=== PATIENT | female | born 1970 | race Caucasian/White ===

== ENCOUNTER 2017-06-18 17:52 | Emergency (ER) | payer OTHER ==
[~2017-06-18] VITALS: Ht 170.2 cm; Wt 77.1 kg
[~2017-06-18 17:52] MED LIST: ACETAMINOPHEN-1 EAC1 PO; CLEOCIN HCL300 MG PO; DOXYCYCLINE 10100 MG PO; KEFLEX500 MG PO; NOHOMEMEDICATIONS; NORCO 5-325 TA1 EACH PO
[2017-06-18] MEDS ORDERED: ZOLOFT50 MG PO (18:10)
[2017-06-18 20:32] VITALS: BP 134/87
== END 2017-06-18 20:35 | disposition home or self-care (01) ==
LOC: M.ERS 17:52
DX: S06.0X0A Concussion without loss of consciousness, initial encounter (principal); F17.210 Nicotine dependence, cigarettes, uncomplicated; Z88.1 Allergy status to other antibiotic agents; Z90.49 Acquired absence of other specified parts of digestive tract; W22.8XXA Striking against or struck by other objects, initial encounter; Y93.89 Activity, other specified; Y92.89 Other specified places as the place of occurrence of the external cause; Y99.8 Other external cause status

== ENCOUNTER 2019-05-31 19:07 | Emergency (ER) | payer OTHER ==
[~2019-05-31] VITALS: Ht 170.2 cm; Wt 79.4 kg
[~2019-05-31 19:07] MED LIST changes: +ZOLOFT50 MG PO
[2019-05-31 19:44] LABS: ABSOLUTE BASOPHILS 0.1 thou/uL (0.0-0.2); ABSOLUTE EOSINOPHILS 0.2 thou/uL (0.0-0.7); ABSOLUTE LYMPHOCYTES 1.9 thou/uL (0.8-5.3); ABSOLUTE MONOCYTES 1.4 thou/uL (0.0-1.2); ABSOLUTE NEUTROPHILS 12.9 thou/uL (1.6-8.1); BASOPHILS 0.5 %; EOSINOPHILS 1.1 %; HEMATOCRIT 42.3 % (37.0-47.0); HEMOGLOBIN 14.5 gm/dL (12.0-15.0); LYMPHOCYTES 11.3 %; MCH 32.8 pg (26.0-34.0); MCHC 34.3 g/dL (28.0-37.0); MCV 95.6 fL (80.0-100.0); MONOCYTES 8.6 %; MPV 8.5 fl. (7.2-11.1); NUCLEATED RBCS 0 /100WBC; PLATELET COUNT* 436 thou/uL (150-400); POLYS 78.5 %; RBC 4.42 mil/uL (4.20-5.00); RDW-CV 13.6 % (10.5-14.5); WBC 16.4 thou/uL (4.0-11.0)
[2019-05-31 19:54] LABS: CALCIUM 8.4 mg/dL (8.5-10.1); POTASSIUM 3.4 mmol/L (3.5-5.1)
[2019-05-31 19:56] LABS: URINE BILIRUBIN NEGATIVE (Negative); URINE BLOOD 3+ (Negative); URINE COLOR YELLOW; URINE GLUCOSE-RANDOM NEGATIVE (Negative); URINE KETONES NEGATIVE (Negative); URINE PROTEIN 3+ (Negative); URINE UROBILINOGEN 0.2 E.U./dl (0.2-1.0)
[2019-05-31 20:00] LABS: URINE CLARITY HAZY; URINE LEUKOCYTES-REFLEX 2+ (Negative); URINE NITRITE-REFLEX POSITIVE (Negative)
[2019-05-31 20:01] LABS: ALBUMIN 3.4 g/dL (3.4-5.0); TOTAL BILIRUBIN 0.8 mg/dL (<0.1-1.0); TOTAL PROTEIN 7.7 g/dL (6.4-8.2)
[2019-05-31 20:06] LABS: CASTS None Seen /LPF (None Seen); CRYSTALS None Seen /LPF (None Seen); SQUAMOUS NONE SEEN /LPF (0-3); URINE RBC >20 Many /HPF (0-2); URINE WBC-REFLEX >25 Many /HPF (0-5)
[2019-05-31] MEDS ORDERED: KEFLEX500 M1 PO (21:57)
[2019-05-31] MEDS ORDERED: NORCO 5-325 TA1 EAC1 PO (21:57)
[2019-05-31 22:04] VITALS: BP 126/79
== END 2019-05-31 22:05 | disposition home or self-care (01) ==
LOC: M.ERS 19:07
PROVIDERS: Emergency Medicine Emergency Medical Services
DX: N12 Tubulo-interstitial nephritis, not specified as acute or chronic (principal); Z88.1 Allergy status to other antibiotic agents; Z88.2 Allergy status to sulfonamides; Z90.89 Acquired absence of other organs; Z90.49 Acquired absence of other specified parts of digestive tract; Z98.51 Tubal ligation status

== ENCOUNTER 2019-07-12 19:54 | Inpatient (IN) | payer OTHER ==
[~2019-07-12] VITALS: Ht 170.2 cm; Wt 81.6 kg
[~2019-07-12 19:54] MED LIST changes: +KEFLEX500 M1 PO; +NORCO 5-325 TA1 EAC1 PO
[2019-07-12 19:55] VITALS: BP 142/67
[2019-07-12 20:19] LABS: URINE BILIRUBIN NEGATIVE (Negative); URINE BLOOD 2+ (Negative); URINE COLOR YELLOW; URINE GLUCOSE-RANDOM NEGATIVE (Negative); URINE KETONES NEGATIVE (Negative); URINE PROTEIN TRACE (Negative); URINE UROBILINOGEN 0.2 E.U./dl (0.2-1.0)
[2019-07-12 20:22] LABS: URINE CLARITY CLOUDY; URINE LEUKOCYTES-REFLEX 2+ (Negative); URINE NITRITE-REFLEX POSITIVE (Negative)
[2019-07-12 20:32] LABS: SQUAMOUS 0-3 Few /LPF (0-3); URINE WBC-REFLEX >25 Many /HPF (0-5)
[2019-07-12 20:33] LABS: BACTERIA-REFLEX >30 Many /HPF (None Seen); CASTS None Seen /LPF (None Seen); CRYSTALS None Seen /LPF (None Seen); URINE RBC 3-10 Few /HPF (0-2)
[2019-07-12 20:37] LABS: ABSOLUTE BASOPHILS 0.1 thou/uL (0.0-0.2); ABSOLUTE EOSINOPHILS 0.1 thou/uL (0.0-0.7); ABSOLUTE LYMPHOCYTES 1.2 thou/uL (0.8-5.3); ABSOLUTE MONOCYTES 1.4 thou/uL (0.0-1.2); ABSOLUTE NEUTROPHILS 10.7 thou/uL (1.6-8.1); BASOPHILS 0.6 %; EOSINOPHILS 0.9 %; HEMATOCRIT 39.7 % (37.0-47.0); HEMOGLOBIN 13.7 gm/dL (12.0-15.0); LYMPHOCYTES 8.8 %; MCH 32.9 pg (26.0-34.0); MCHC 34.5 g/dL (28.0-37.0); MCV 95.2 fL (80.0-100.0); MONOCYTES 10.2 %; MPV 8.9 fl. (7.2-11.1); NUCLEATED RBCS 0 /100WBC; PLATELET COUNT* 374 thou/uL (150-400); POLYS 79.5 %; RBC 4.17 mil/uL (4.20-5.00); WBC 13.5 thou/uL (4.0-11.0)
[2019-07-12 20:52] LABS: ALBUMIN 3.1 g/dL (3.4-5.0); CALCIUM 8.3 mg/dL (8.5-10.1); POTASSIUM 3.8 mmol/L (3.5-5.1); TOTAL BILIRUBIN 0.3 mg/dL (<0.1-1.0)
[2019-07-12 22:55] VITALS: BP 120/70
[2019-07-12 23:00] VITALS: BP 118/79
[2019-07-13 04:00] VITALS: BP 122/77
[2019-07-13 08:00] VITALS: BP 123/84
[2019-07-13 16:25] VITALS: BP 110/72
--- NOTE | 2019-07-13 17:28 | NUR ---
PATIENT RESTING IN BED. PATIENT IS UP AD DIMA IN ROOM. PATIENT HAS HAD COMPLAINTS OF FLANK AND ABDOMINAL PAIN TREATED ADEQUATELY WITH MEDICATION AND HEAT APPLICATION. PATIENT HAS BEEN AFEBRILE. PATIENT HAS GOOD APPETITE. PATIENT DENIES ANY NEEDS AT THIS TIME. CALL LIGHT WITHIN REACH.
[2019-07-13 19:39] VITALS: BP 125/77
[2019-07-14 08:35] VITALS: BP 135/89
[2019-07-14 10:20] LABS: HEMATOCRIT 38.4 % (37.0-47.0); HEMOGLOBIN 13.1 gm/dL (12.0-15.0); MCH 33.1 pg (26.0-34.0); MCV 97.3 fL (80.0-100.0); MPV 9.2 fl. (7.2-11.1); RBC 3.95 mil/uL (4.20-5.00); RDW-CV 12.9 % (10.5-14.5); WBC 10.1 thou/uL (4.0-11.0)
[2019-07-14 10:29] LABS: ALBUMIN 2.4 g/dL (3.4-5.0); CALCIUM 7.8 mg/dL (8.5-10.1); CREATININE 0.8 mg/dL (0.6-1.3); MAGNESIUM 1.8 mg/dL (1.8-2.4); PHOSPHORUS* 2.8 mg/dL (2.5-4.9); POTASSIUM 3.7 mmol/L (3.5-5.1)
[2019-07-14 16:30] VITALS: BP 133/92
--- NOTE | 2019-07-14 16:37 | NUR ---
Patient has had a good day. She is wanting to go home but knows that she needs the antibiotics. She has been watching tv most of the day. She has been medicated as needed for pain and up to the bathroom with stand by assistance only. She is independent with her personal care. Urine culture showing e-coli we are waiting for the sensitivity.
[2019-07-14 20:00] VITALS: BP 132/76
--- NOTE | 2019-07-15 06:05 | NUR ---
PATIENT SLEPT MOST OF THE NIGHT. PATIENT TOOK SHOWER LAST NIGHT. IV FLUIDS ARE INFUSING ORDERED. PATIENT WAS GIVEN PAIN MEDICINE ONCE THIS SHIFT. WILL CONTINUE TO MONITOR.
[2019-07-15 07:50] VITALS: BP 126/82
[2019-07-15] MEDS ORDERED: SENNA-TIME S T1 EACH PO (11:32)
[2019-07-15] MEDS ORDERED: VITAMIN D325 MCG PO (11:32)
[2019-07-15] MEDS ORDERED: MACROBID 100 M100 MG PO (11:32)
[2019-07-15] MEDS ORDERED: FLOMAX0.4 MG PO (11:32)
[2019-07-15] MEDS ORDERED: IBUPROFEN 800800 M1 PO (11:32)
[2019-07-15 11:45] VITALS: BP 126/82
--- NOTE | 2019-07-15 12:30 | NUR ---
PT A&OX4 VSS. IV TO RFA DC'D PRIOR TO DC. NO REDNESS/SWELLING NOTED. UP UP AD DIMA, GAIT STEADY. NO C/O PAIN, N/V. PT REC'D IV ABX AND FLUIDS THIS SHIFT. TOLERATED WELL. PT DRESSED INDEPENDENTLY AND AMBULATED TO NURSES STATION UNAIDED, GAIT STEADY. PT STATES UNDERSTANDING OF DC INSTRUCTIONS AND F/U INFORMATION PROVIDED. PT UNDERSTANDS RX CALLED INTO HER PHARMACY OF CHOICE. PT ESCORTED TO FRONT ENTRANCE BY NURSING STAFF. PT LEAVES UNIT WITH ALL PERSONAL BELONGINGS.
== END 2019-07-15 12:30 | disposition home or self-care (01) | DRG 872 ==
LOC: M.ERS 19:54 → M.TBA-ER 22:25 → M.3W 22:25 → M.ERS 22:56 → M.3W 23:10
PROVIDERS: Family Medicine; ADMIT Internal Medicine
DX: A41.9 Sepsis, unspecified organism (principal); N12 Tubulo-interstitial nephritis, not specified as acute or chronic; N94.6 Dysmenorrhea, unspecified; K59.00 Constipation, unspecified; B96.20 Unspecified Escherichia coli [E. coli] as the cause of diseases classified elsewhere; B19.20 Unspecified viral hepatitis C without hepatic coma; E55.9 Vitamin D deficiency, unspecified; Z90.49 Acquired absence of other specified parts of digestive tract; Z88.2 Allergy status to sulfonamides; Z88.9 Allergy status to unspecified drugs, medicaments and biological substances

== ENCOUNTER 2019-11-26 22:25 | Emergency (ER) | payer OTHER ==
[~2019-11-26] VITALS: Ht 170.2 cm; Wt 74.8 kg
[~2019-11-26 22:25] MED LIST changes: +FLOMAX0.4 MG PO; +IBUPROFEN 800800 M1 PO; +MACROBID 100 M100 MG PO; +SENNA-TIME S T1 EACH PO; +VITAMIN D325 MCG PO
[2019-11-26 22:48] LABS: ABSOLUTE BASOPHILS 0.1 thou/uL (0.0-0.2); ABSOLUTE EOSINOPHILS 0.2 thou/uL (0.0-0.7); ABSOLUTE LYMPHOCYTES 2.3 thou/uL (0.8-5.3); ABSOLUTE MONOCYTES 1.7 thou/uL (0.0-1.2); ABSOLUTE NEUTROPHILS 9.5 thou/uL (1.6-8.1); BASOPHILS 0.9 %; EOSINOPHILS 1.5 %; HEMATOCRIT 41.5 % (37.0-47.0); HEMOGLOBIN 14.3 gm/dL (12.0-15.0); LYMPHOCYTES 16.9 %; MCHC 34.4 g/dL (28.0-37.0); MCV 93.1 fL (80.0-100.0); MONOCYTES 12.2 %; MPV 7.9 fl. (7.2-11.1); NUCLEATED RBCS 0 /100WBC; PLATELET COUNT* 454 thou/uL (150-400); POLYS 68.5 %; RBC 4.46 mil/uL (4.20-5.00); RDW-CV 13.3 % (10.5-14.5); WBC 13.8 thou/uL (4.0-11.0)
[2019-11-26 22:56] LABS: POTASSIUM 3.4 mmol/L (3.5-5.1)
[2019-11-26 23:00] LABS: ALBUMIN 3.3 g/dL (3.4-5.0); TOTAL BILIRUBIN 0.5 mg/dL (<0.1-1.0); TOTAL PROTEIN 8.2 g/dL (6.4-8.2)
[2019-11-27 00:11] LABS: URINE BILIRUBIN NEGATIVE (Negative); URINE BLOOD 1+ (Negative); URINE CLARITY CLEAR; URINE COLOR YELLOW; URINE GLUCOSE-RANDOM NEGATIVE (Negative); URINE KETONES NEGATIVE (Negative); URINE LEUKOCYTES-REFLEX NEGATIVE (Negative); URINE NITRITE-REFLEX NEGATIVE (Negative); URINE PROTEIN NEGATIVE (Negative); URINE SPECIFIC GRAVITY <= 1.005 (1.005-1.030); URINE UROBILINOGEN 0.2 E.U./dl (0.2-1.0)
[2019-11-27 00:31] LABS: SQUAMOUS 4-10 Moderate /LPF (0-3); URINE RBC 3-10 Few /HPF (0-2); URINE WBC-REFLEX 6-15 Few /HPF (0-5)
[2019-11-27 00:32] LABS: BACTERIA-REFLEX >30 Many /HPF (None Seen); CASTS None Seen /LPF (None Seen); CRYSTALS None Seen /LPF (None Seen); MUCUS 4-6 Moderate strn/LPF (None Seen)
[2019-11-27] MEDS ORDERED: CIPROFLOXACIN500 M1 PO (00:55)
[2019-11-27] MEDS ORDERED: NORCO 10-325 T1 EACH PO (00:55)
[2019-11-27] MEDS ORDERED: ZOFRAN ODT4 MG SUBLING (00:55)
[2019-11-27 01:49] VITALS: BP 170/82
--- NOTE | 2019-11-27 11:39 | EKG ---
[place] [address] ELECTROCARDIOGRAM REPORT Name: KAILEY DIMAS Room: [facility]#: [id number] Admission: 11/26/19 Attend Phys: Discharge: 11/27/19 Date of : 74 Date of Service: 11/26/192232 Report #: [id number] THIS REPORT FOR: //name// [facility] ED Test Date: 2019-11-26 Test Time: 22:33:15 Pat Name: KAILEY DIMAS Department: Room: Gender: [place]: [place] : 1970 Requested By: Herson Arnold Order Number: [id number] MD: Duy Crews Measurements Intervals [place] Rate: 96 P: 63 IA: 142 QRS: 15 QRSD: 76 T: 59 QT: 353 QTc: 447 Interpretive Statements Sinus rhythm Right atrial enlargement No previous ECG available for comparison Electronically Signed On 11-27-2019 11:39:50 CDT by Duy Crews [email or web address] <ELECTRONICALLY SIGNED> By: Duy Crews MD, [facility] 11/27/19 1139 32 32 Duy Crews MD, FACC /EPI
== END 2019-11-27 01:50 | disposition home or self-care (01) ==
LOC: M.ERS 22:25
PROVIDERS: Family Medicine
DX: N12 Tubulo-interstitial nephritis, not specified as acute or chronic (principal); A59.01 Trichomonal vulvovaginitis; Z98.51 Tubal ligation status; Z88.2 Allergy status to sulfonamides; Z90.49 Acquired absence of other specified parts of digestive tract